=== PATIENT | female | born 1990 | race Caucasian/White ===

== ENCOUNTER 2019-10-18 15:06 | Outpatient (CLI) | payer MEDICAID ==
--- NOTE | 2019-10-18 15:09 | XRAY Report ---
PROCEDURE: Lumbar Spine 2 View INDICATIONS: CHRONIC LOW BACK PAIN TECHNIQUE: 3 views of the lumbar spine were acquired. COMPARISON: None. FINDINGS: Bones: 5 [id number] vertebrae are present. There is normal bony alignment. Apparent pars defec t at L5. Severe disc space and foraminall narrowing at L5-s1, No vertebral body compression fracture s. No suspicious bony lesions. Soft tissues: Overlying bowel gas pattern is normal. No suspicious soft tissue calcifications. IMPRESSION: Severe disc and foraminal narrowing at L5-S1. Reviewed by: Gi Oshea MD on 10/18/2019 3:08 PM PDT Approved by: Gi Oshea MD on 10/18/2019 3:08 PM PDT Station ID: [id number]
== END 2019-10-18 23:59 | disposition home or self-care (01) ==
LOC: DI.WCP 15:06
PROVIDERS: ATTEND Family Medicine
DX: M48.07 Spinal stenosis, lumbosacral region (principal)
CPT/HCPCS: 72100

== ENCOUNTER 2020-05-18 15:45 | Emergency (ER) | payer BC, MEDICAID ==
--- OUTSIDE RECORDS SUMMARY | 2020-05-18 16:06 | EXTERNAL MEDICAL SUMMARY RPT | Continuity of Care Document ---
:1990 Demographics Phone Unavailable Preferred Language Unknown Marital Status Unknown Confucianism Affiliation Unknown Race Unknown Ethnic Group Unknown Author Organization [facility] Address [address] [place] [address] Phone Social History date description facility [id number]
[2020-05-18] MEDS ORDERED: SUMAtriptan 6 MG/0.5 ML VIAL SUBQ STA (16:15)
[2020-05-18] MEDS ORDERED: BUTALB/ACETAM/CAFF 50/325/40MG TABLET PO STA (16:15)
--- NOTE | 2020-05-18 16:28 | ED Physician Documentation ---
PD HPI HEADACHE - Stated complaint Stated Complaint: MIGRAINE - Chief complaint Chief Complaint: Neuro - History obtained from History obtained from: Patient - History of Present Illness Timing - onset: How many days ago (4-5) Timing - onset during: Rest Timing - duration: Days (4-5) Timing - details: Gradual onset, Waxing and waning Pain level max: 7 Pain level now: 7 Worst headache ever?: No: Worst headache ever? Location: Global Quality: Throbbing, Aching Associated symptoms: No: Fever, Stiff neck, Nausea, Vomiting, Weakness, Numbness, Syncope, Seizure, Eye pain, Vision changes Improved by: Rest, Dark room Worsened by: Light, Noise Contributing factors: No: Anticoagulated, Possible carbon monoxide, Hypertension, Recent illness, Trauma Similar symptoms before: Diagnosis (migraines) - Additional information Additional information: 29-year-old female states that she has a history of migraine headaches. She states that she went to the walk-in clinic 2 days ago and received a shot of Toradol. She states it helped for a little while but the headache returned. She tried Tylenol at home without relief. Denies any possibility of . No trauma. No focal neurological deficits. No numbness or weakness. No vision changes. No trauma. She states that this headache is similar to her prior headaches. Review of Systems Ten Systems: 10 systems reviewed and negative Constitutional: denies: Fever, Chills Ears: denies: Ear pain Nose: denies: Rhinorrhea / runny nose, Congestion Cardiac: denies: Chest pain / pressure, Palpitations Respiratory: denies: Dyspnea GI: denies: Abdominal Pain, Vomiting, Diarrhea : denies: Dysuria, Frequency, Hesitancy, Now EGA Skin: denies: Rash Musculoskeletal: denies: Neck pain, Back pain PD PAST MEDICAL HISTORY - Past Medical History Past Medical History: Yes Neuro: Migraines - Present Medications Home Medications: Ambulatory Orders Medication Instructions Recorded Confirmed SUMAtriptan [Imitrex] 25 mg PO ONCE PRN #9 tablet 05/18/20 - Allergies Allergies/Adverse Reactions: Allergies Allergy/AdvReac Type Severity Reaction Status Date / Time No Known Drug Allergies Allergy Verified 05/18/20 15:48 PD ED PE NORMAL - Vitals Vital signs reviewed: Yes - General General: Alert and oriented X 3, No acute distress, Well developed/nourished - HEENT HEENT: Atraumatic, PERRL, Ears normal, Moist mucous membranes, Pharynx benign - Neck Neck: Supple, no meningeal sign, No bony TTP - Cardiac Cardiac: RRR, Strong equal pulses - Respiratory Respiratory: No respiratory distress, Clear bilaterally - Abdomen Abdomen: Soft, Non tender, Non distended - Derm Derm: Warm and dry - Extremities Extremities: No edema - Neuro Neuro: Alert and oriented X 3, 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 Normal cerebellar test. NIH stroke scale of 0) Eye Opening: Spontaneous Motor: Obeys Commands Verbal: Oriented GCS Score: 15 - Psych Psych: Normal mood, Normal affect Results - Vitals Vitals: Vital Signs - 24 hr 05/18/20 05/18/20 15:48 16:51 Temperature 36.5 C Heart Rate 90 63 Respiratory 16 16 Rate Blood Pressure 130/88 H 127/80 O2 Saturation 99 99 Oxygen O2 Source Room air PD MEDICAL DECISION MAKING - ED course Complexity details: re-evaluated patient, considered differential, d/w patient ED course: 29-year-old female with her usual migraine headache. She was treated with Imitrex and Fioricet. Headache fully resolved. Patient requested a prescription of Imitrex. We will have her follow-up with her doctor for further care. No evidence of subarachnoid hemorrhage, intracranial hemorrhage or tumor. Patient counseled regarding signs and symptoms for which I believe and urgent re-evaluation would be necessary. Patient with good understanding of and agreement to plan and is comfortable going home at this time This document was made in part using voice recognition software. While efforts are made to proofread this document, sound alike and grammatical errors may occur. Departure - Departure Disposition: 01 Home, Self Care Clinical Impression: Migraine Qualifiers: Migraine type: unspecified Status migrainosus presence: without status migrainosus Intractability: not intractable Qualified Code(s): G43.909 - Migraine, unspecified, not intractable, without status migrainosus Condition: Good Instructions: ED Headache Migraine Follow-Up: Jacqueline Ham PA-C [Primary Care Provider] - Within 1 week Prescriptions: SUMAtriptan [Imitrex] 25 mg PO ONCE PRN #9 tablet PRN Reason: headache Comments: Follow-up with your doctor for further care. Return if you worsen. Do not drive or operate heavy machinery today. Go home and rest.
[2020-05-18 16:52] VITALS: BP 127/80
== END 2020-05-18 17:02 | disposition home or self-care (01) ==
LOC: ED 15:45
DX: G43.909 Migraine, unspecified, not intractable, without status migrainosus (principal)
CPT/HCPCS: 96372; 99283; 99284; A9270

== ENCOUNTER 2020-05-31 08:00 | Outpatient (CLI) | payer BC, MEDICAID ==
[2020-05-31 22:26] LABS: CHLAMYDIA TRACHOMATIS DNA NEGATIVE (NEGATIVE); NEISSERIA GONORRHOEAE DNA NEGATIVE (NEGATIVE); TRICHOMONAS VAGINALIS DNA NEGATIVE (NEGATIVE)
== END 2020-05-31 23:59 | disposition home or self-care (01) ==
LOC: LAB.R 08:00
PROVIDERS: ATTEND Physician Assistant Medical
DX: Z11.3 Encounter for screening for infections with a predominantly sexual mode of transmission (principal)
CPT/HCPCS: 87491; 87591; 87661